=== PATIENT | male | born 1975 | race African-American/Black ===

== ENCOUNTER 2022-03-31 00:41 | Emergency (ER) | payer SELFPAY ==
[~2022-03-31] VITALS: Ht 200.7 cm; Wt 150.0 kg
[~2022-03-31 00:41] MED LIST: BACDS PO; NO HOME MEDS
[2022-03-31 01:03] VITALS: BP 132/80
[2022-03-31] MEDS ORDERED: dexamethasone 4mg tablet PO ONE (01:15)
== END 2022-03-31 05:09 | disposition left against medical advice (07) ==
LOC: ER 00:42
DX: T14.8XXA Other injury of unspecified body region, initial encounter (principal); Z53.21 Procedure and treatment not carried out due to patient leaving prior to being seen by health care provider